=== PATIENT | female | born 1960 | race Caucasian/White ===

== ENCOUNTER 2017-03-15 08:15 | Inpatient (IN) | payer OTHER ==
[~2017-03-15] VITALS: Ht 162.6 cm; Wt 110.4 kg
[~2017-03-15 08:15] MED LIST: BACITRACIN 50,000 UNIT ONE; BUPIVACAINE/PF 0.5% ONE; EPINEPHRINE 1 MG/ML, 1ML ONE; THROMBIN 5,000 UNIT VIAL TP ONE; TRANEXAMIC ACID 100 MG/ML, 10ML ONE; VANCOMYCIN 1,000 MG ONE
[2017-03-15] MEDS ORDERED: FENTANYL PF 250 MCG/5ML ONE (08:34)
[2017-03-15] MEDS ORDERED: MIDAZOLAM 1 MG/ML, 2ML ONE (08:34)
[2017-03-15] MEDS ORDERED: LACTATED RINGERS 1,000 ML IV SCH (08:48)
[2017-03-15] MEDS ORDERED: METO-282 PO (08:57)
[2017-03-15] MEDS ORDERED: CALC-316 PO (08:57)
[2017-03-15] MEDS ORDERED: HYDR12.53 PO (08:57)
[2017-03-15] MEDS ORDERED: ATOR10TA9 PO (08:57)
[2017-03-15] MEDS ORDERED: ASPI-496 PO (08:57)
[2017-03-15] MEDS ORDERED: SITA100T PO (08:57)
[2017-03-15] MEDS ORDERED: ESOM40CA PO (08:57)
[2017-03-15] MEDS ORDERED: DICL50TA2 PO (08:57)
[2017-03-15] MEDS ORDERED: OXYC10TA72 PEG (08:57)
[2017-03-15] MEDS ORDERED: CHOL2000 PO (08:57)
[2017-03-15 09:09] VITALS: BP 141/82
[2017-03-15] MEDS ORDERED: PLEASE ENTER HEIGHT AND WEIGHT MC SCH (09:30)
[2017-03-15] MEDS ORDERED: PLEASE ENTER ALLERGIES MC SCH (09:30)
[2017-03-15] MEDS ORDERED: DEXAMETHASONE 4 MG/ML, 1ML ONE (09:35)
[2017-03-15] MEDS ORDERED: PROPOFOL 10 MG/ML, 20ML ONE ×2 (09:35→10:18)
[2017-03-15] MEDS ORDERED: ROCURONIUM 10 MG/ML,10ML ONE (09:35)
[2017-03-15] MEDS ORDERED: CEFAZOLIN 1,000 MG ONE ×2 (09:53→09:54)
[2017-03-15] MEDS ORDERED: PROPOFOL 100 ML ONE (10:18)
[2017-03-15] MEDS: BUPIVACAINE LIPOSOME/PF INFIL ONE ×2 (10:37→11:52)
[2017-03-15] MEDS ORDERED: ONDANSETRON 2MG/ML, 2ML ONE (11:34)
[2017-03-15] MEDS ORDERED: FENTANYL PF 100 MCG/2ML ONE (12:08)
[2017-03-15] MEDS ORDERED: ACETAMINOPHEN 650 MG/20.3 ML UDC ONE (12:08)
[2017-03-15] MEDS ORDERED: OXYcodone 5 MG/5 ML ORAL.SOL UDC ONE ×2 (12:09→12:55)
[2017-03-15] MEDS: FENTANYL PF 100 MCG/2ML IV PRN ×2 (12:10→12:18)
[2017-03-15] MEDS: OXYcodone 5 MG/5 ML ORAL.SOL UDC PO PRN ×2 (12:19→12:56)
[2017-03-15] MEDS ORDERED: HYDROmorphone 2 MG/ML, 1ML ONE ×2 (12:24→13:05)
[2017-03-15] MEDS: HYDROmorphone 1 MG/ML, 1ML IV PRN ×5 (12:26→13:08)
[2017-03-15] MEDS ORDERED: MEPERIDINE/PF 25MG/0.5ML IVPush PRN (12:30)
[2017-03-15] MEDS ORDERED: PROMETHAZINE 25 MG/ML, 1ML IV PRN (12:30)
[2017-03-15] MEDS ORDERED: ACETAMINOPHEN 325 MG TABLET PO PRN (12:30)
[2017-03-15] MEDS ORDERED: hydrALAzine 20 MG/ML, 1ML IV PRN (12:30)
[2017-03-15] MEDS ORDERED: DIPHENHYDRAMINE 50 MG CAPSULE PO PRN (12:30)
[2017-03-15] MEDS ORDERED: DIAZEPAM 5 MG TABLET PO PRN (12:30)
[2017-03-15] MEDS ORDERED: ZOLPIDEM 5MG TABLET PO PRN (12:30)
[2017-03-15] MEDS ORDERED: LABETALOL 5MG/ML, 20ML IV PRN (12:30)
[2017-03-15] MEDS ORDERED: OXYcodone/APAP 5/325MG TABLET PO PRN (12:30)
[2017-03-15] MEDS ORDERED: LABETALOL 5MG/ML, 20ML IVPush PRN (12:30)
[2017-03-15] MEDS ORDERED: ONDANSETRON 2MG/ML, 2ML IVPush PRN ×2 (12:30)
[2017-03-15] MEDS ORDERED: PHARMACY MAY ADJ FOR RENAL FX MC PRN (12:30)
[2017-03-15] MEDS ORDERED: morphine SULFATE 10 MG/ML, 1ML IVPush PRN (12:30)
[2017-03-15] MEDS ORDERED: LABETALOL 5MG/ML, 20ML ONE (12:35)
[2017-03-15] MEDS ORDERED: CYCLOBENZAPRINE 10 MG TABLET ONE (12:37)
[2017-03-15] MEDS: CYCLOBENZAPRINE 10 MG TABLET PO PRN ×2 (12:40→22:02)
[2017-03-15] MEDS: HYDROcodone/APAP 5/325 TABLET PO PRN ×3 (14:24→20:00)
[2017-03-15] MEDS: GABAPENTIN 300 MG CAPSULE PO SCH ×2 (17:56→20:00)
[2017-03-15 18:33] VITALS: BP 129/77
[2017-03-15] MEDS ORDERED: OXYB5TAB7 PO (20:06)
[2017-03-15] MEDS: OXYBUTYNIN CHLORIDE 5 MG TABLET PO SCH (22:02)
[2017-03-15] MEDS: ATORVASTATIN 10 MG TABLET PO SCH (22:02)
[2017-03-15 23:30] VITALS: BP 116/72
[2017-03-16 03:27] VITALS: BP 107/69
[2017-03-16] MEDS: HYDROcodone/APAP 5/325 TABLET PO PRN ×4 (05:18→23:36)
[2017-03-16] MEDS: CYCLOBENZAPRINE 10 MG TABLET PO PRN ×2 (07:23→17:20)
[2017-03-16] MEDS: SENNA/DOCUSATE TABLET PO PRN (07:23)
[2017-03-16 07:26] VITALS: BP 127/77
[2017-03-16] MEDS ORDERED: METOPROLOL TARTRATE 25 MG TABLET PO SCH (09:00)
[2017-03-16] MEDS: GABAPENTIN 300 MG CAPSULE PO SCH ×3 (09:38→19:26)
[2017-03-16] MEDS: SITAGLIPTIN 50MG TABLET PO SCH (09:38)
[2017-03-16 14:14] VITALS: BP 113/68
[2017-03-16] MEDS: OXYBUTYNIN CHLORIDE 5 MG TABLET PO SCH (19:26)
[2017-03-16] MEDS: CHOLECALCIFEROL 1,000 UNIT TABLET PO SCH (19:26)
[2017-03-16] MEDS: ATORVASTATIN 10 MG TABLET PO SCH (19:26)
[2017-03-16 19:38] VITALS: BP 108/69
[2017-03-16] MEDS ORDERED: ASPIRIN 81 MG TABLET EC PO SCH (21:00)
[2017-03-16] MEDS ORDERED: ATORVASTATIN 10 MG TABLET PO SCH (21:00)
[2017-03-16] MEDS ORDERED: OXYBUTYNIN CHLORIDE 5 MG TABLET PO SCH (21:00)
[2017-03-17 03:31] VITALS: BP 107/70
[2017-03-17] MEDS: METOPROLOL SUCCINATE 25 MG TAB.ER.24H PO SCH (06:27)
[2017-03-17 06:31] VITALS: BP 112/71
[2017-03-17] MEDS ORDERED: BUPIVACAINE/PF 0.5% ONE (07:19)
[2017-03-17] MEDS ORDERED: BACITRACIN 50,000 UNIT ONE (07:20)
[2017-03-17] MEDS ORDERED: EPINEPHRINE 1 MG/ML, 1ML ONE (07:20)
[2017-03-17] MEDS ORDERED: THROMBIN 5,000 UNIT VIAL TP ONE (07:20)
[2017-03-17 07:23] VITALS: BP 103/62
[2017-03-17] MEDS: PANTOPROZOLE 40MG TABLET PO SCH (07:30)
[2017-03-17] MEDS: SITAGLIPTIN 50MG TABLET PO SCH (07:47)
[2017-03-17] MEDS: HYDROCHLOROTHIAZIDE 12.5 MG CAPSULE PO SCH (07:47)
[2017-03-17] MEDS: CHOLECALCIFEROL 1,000 UNIT TABLET PO SCH ×2 (07:48→20:36)
[2017-03-17] MEDS: GABAPENTIN 300 MG CAPSULE PO SCH ×3 (07:48→20:35)
[2017-03-17] MEDS: OxyconTIN ER 10 MG TAB.ER PO SCH (07:48)
[2017-03-17] MEDS ORDERED: FENTANYL PF 250 MCG/5ML ONE (08:17)
[2017-03-17] MEDS ORDERED: BUPIVACAINE LIPOSOME/PF INFIL ONE ×2 (08:39→10:01)
[2017-03-17] MEDS ORDERED: TEMPLATE NON-FORMULARY MED. (Sitagliptin Phosphate** (Januvia**) 100 MG) PO SCH (09:00)
[2017-03-17 09:21] LABS: BASOPHILS # (AUTO) 0.03 x10^3/uL (0-0.1); BASOPHILS % (AUTO) 0 % (0-1); EOSINOPHILS # (AUTO) 0.05 x10^3/uL (0-0.4); EOSINOPHILS % (AUTO) 1 % (1-7); LYMPHOCYTES # (AUTO) 3.55 x10^3/uL (1-3.4); LYMPHOCYTES % (AUTO) 36 % (22-44); MD NO; MEAN CORPUSCULAR HGB CONC 33.7 g/dL (32.4-35.8); MEAN CORPUSCULAR VOLUME 86.3 fL (80-100); MONOCYTES # (AUTO) 0.77 x10^3/uL (0.2-0.8); MONOCYTES % (AUTO) 8 % (2-9); NEUTROPHILS % (AUTO) 56 % (42-75); PLATELET COUNT 283 x10^3/uL (130-400); RED BLOOD COUNT 4.09 x10^6/uL (3.82-5.3); RED CELL DISTRIBUTION WIDTH 13.5 % (9.6-15.2)
[2017-03-17] MEDS ORDERED: BUPIVACAINE/PF-EPI 0.5% 1:200K IM ONE (09:24)
[2017-03-17] MEDS ORDERED: DIAZEPAM 5 MG/ML, 2ML IVPush PRN (09:30)
[2017-03-17] MEDS ORDERED: OXYcodone 5 MG/5 ML ORAL.SOL UDC PO PRN (09:30)
[2017-03-17] MEDS ORDERED: ONDANSETRON 2MG/ML, 2ML IVPush PRN (09:30)
[2017-03-17] MEDS ORDERED: hydrALAzine 20 MG/ML, 1ML IV PRN (09:30)
[2017-03-17] MEDS ORDERED: LABETALOL 5MG/ML, 20ML IV PRN (09:30)
[2017-03-17] MEDS ORDERED: FENTANYL PF 100 MCG/2ML ONE ×2 (09:38→10:08)
[2017-03-17] MEDS ORDERED: VANCOMYCIN 1,000 MG ONE (09:45)
[2017-03-17] MEDS ORDERED: methylPREDNISolone SOD SUCC 40 MG/ML ONE (09:53)
[2017-03-17] MEDS ORDERED: ACETAMINOPHEN 650 MG/20.3 ML UDC ONE (10:08)
[2017-03-17] MEDS ORDERED: OXYcodone 5 MG/5 ML ORAL.SOL UDC ONE (10:08)
[2017-03-17] MEDS ORDERED: SUCCINYLCHOLINE 20 MG/ML, 10ML ONE (10:24)
[2017-03-17] MEDS ORDERED: TRANEXAMIC ACID 1,500 MG in SODIUM CHLORIDE 0.9% 100 ML IV ONE (10:30)
[2017-03-17] MEDS ORDERED: HYDROmorphone 2 MG/ML, 1ML ONE (10:46)
[2017-03-17] MEDS: HYDROmorphone 1 MG/ML, 1ML IV PRN ×5 (10:48→11:08)
[2017-03-17] MEDS: FENTANYL PF 100 MCG/2ML IV PRN ×2 (10:50→11:00)
[2017-03-17] MEDS ORDERED: ACETAMINOPHEN 325 MG/10.15 ML UDC PO ONE (12:30)
[2017-03-17 14:00] VITALS: BP 141/81
[2017-03-17] MEDS: HYDROcodone/APAP 5/325 TABLET PO PRN ×2 (17:28→18:03)
[2017-03-17 19:01] VITALS: BP 122/73
[2017-03-17] MEDS: SENNA/DOCUSATE TABLET PO PRN (20:35)
[2017-03-17] MEDS: ATORVASTATIN 10 MG TABLET PO SCH (20:35)
[2017-03-17] MEDS: OXYBUTYNIN CHLORIDE 5 MG TABLET PO SCH (20:35)
[2017-03-17] MEDS: METHOCARBAMOL 750 MG TABLET PO SCH (20:36)
[2017-03-18] MEDS: HYDROcodone/APAP 5/325 TABLET PO PRN ×4 (00:44→20:09)
[2017-03-18 01:20] VITALS: BP 126/77
[2017-03-18] MEDS: METHOCARBAMOL 750 MG TABLET PO SCH ×3 (05:40→19:07)
[2017-03-18] MEDS: MAGNESIUM HYDROXIDE 8%, 30ML UDC PO PRN (05:40)
[2017-03-18] MEDS: PANTOPROZOLE 40MG TABLET PO SCH (07:02)
[2017-03-18] MEDS: CHOLECALCIFEROL 1,000 UNIT TABLET PO SCH ×2 (08:45→20:10)
[2017-03-18] MEDS: GABAPENTIN 300 MG CAPSULE PO SCH ×3 (08:45→20:10)
[2017-03-18] MEDS: METOPROLOL SUCCINATE 25 MG TAB.ER.24H PO SCH ×2 (08:46→08:49)
[2017-03-18] MEDS: SITAGLIPTIN 50MG TABLET PO SCH (08:46)
[2017-03-18] MEDS: HYDROCHLOROTHIAZIDE 12.5 MG CAPSULE PO SCH (08:47)
[2017-03-18] MEDS: OxyconTIN ER 10 MG TAB.ER PO SCH (08:47)
[2017-03-18 08:48] VITALS: BP 108/68
[2017-03-18] MEDS: BISACODYL 10 MG SUPP PR PRN (15:17)
[2017-03-18 15:19] VITALS: BP 127/80
[2017-03-18 18:56] VITALS: BP 128/78
[2017-03-18] MEDS: CYCLOBENZAPRINE 10 MG TABLET PO PRN (19:05)
[2017-03-18] MEDS: OXYBUTYNIN CHLORIDE 5 MG TABLET PO SCH (20:09)
[2017-03-18] MEDS: ATORVASTATIN 10 MG TABLET PO SCH (20:09)
[2017-03-19] MEDS: HYDROcodone/APAP 5/325 TABLET PO PRN ×6 (00:14→19:33)
[2017-03-19 01:39] VITALS: BP 128/78
[2017-03-19] MEDS: METHOCARBAMOL 750 MG TABLET PO SCH ×3 (04:15→21:33)
[2017-03-19 08:17] VITALS: BP 132/82
[2017-03-19] MEDS: OxyconTIN ER 10 MG TAB.ER PO SCH (09:00)
[2017-03-19] MEDS: PANTOPROZOLE 40MG TABLET PO SCH (09:50)
[2017-03-19] MEDS: GABAPENTIN 300 MG CAPSULE PO SCH ×3 (09:50→21:32)
[2017-03-19] MEDS: SITAGLIPTIN 50MG TABLET PO SCH (09:50)
[2017-03-19] MEDS: HYDROCHLOROTHIAZIDE 12.5 MG CAPSULE PO SCH (09:50)
[2017-03-19] MEDS: METOPROLOL SUCCINATE 25 MG TAB.ER.24H PO SCH (10:01)
[2017-03-19] MEDS: MAGNESIUM HYDROXIDE 8%, 30ML UDC PO PRN (10:18)
[2017-03-19] MEDS: CHOLECALCIFEROL 1,000 UNIT TABLET PO SCH ×2 (10:21→21:33)
[2017-03-19 15:09] VITALS: BP 112/71
[2017-03-19] MEDS ORDERED: HYDROmorphone 1 MG/ML, 1ML IV PRN (17:30)
[2017-03-19] MEDS ORDERED: MAGNESIUM HYDROXIDE 8%, 30ML UDC PO PRN (17:30)
[2017-03-19] MEDS: HYDROmorphone 2 MG/ML, 1ML IV PRN ×2 (17:52→21:30)
[2017-03-19 20:00] VITALS: BP 100/64
[2017-03-19] MEDS: OXYBUTYNIN CHLORIDE 5 MG TABLET PO SCH (21:33)
[2017-03-19] MEDS: ATORVASTATIN 10 MG TABLET PO SCH (21:33)
[2017-03-19] MEDS: SENNA/DOCUSATE TABLET PO PRN (21:35)
[2017-03-20 03:23] VITALS: BP 117/74
[2017-03-20] MEDS: CYCLOBENZAPRINE 10 MG TABLET PO PRN (03:27)
[2017-03-20] MEDS: METHOCARBAMOL 750 MG TABLET PO SCH ×2 (04:30→08:13)
[2017-03-20 06:42] VITALS: BP 116/73
[2017-03-20] MEDS: SITAGLIPTIN 50MG TABLET PO SCH (08:13)
[2017-03-20] MEDS: HYDROCHLOROTHIAZIDE 12.5 MG CAPSULE PO SCH (08:13)
[2017-03-20] MEDS: METOPROLOL SUCCINATE 25 MG TAB.ER.24H PO SCH (08:13)
[2017-03-20] MEDS: GABAPENTIN 300 MG CAPSULE PO SCH (08:13)
[2017-03-20] MEDS: CHOLECALCIFEROL 1,000 UNIT TABLET PO SCH (08:13)
[2017-03-20] MEDS: HYDROmorphone 2MG TABLET PO PRN ×3 (08:56→15:46)
[2017-03-20] MEDS: SENNA/DOCUSATE TABLET PO PRN (08:57)
[2017-03-20] MEDS: MAGNESIUM HYDROXIDE 8%, 30ML UDC PO PRN (08:57)
[2017-03-20] MEDS: OxyconTIN ER 10 MG TAB.ER PO SCH (09:00)
[2017-03-20] MEDS: BISACODYL 10 MG SUPP PR PRN (10:04)
[2017-03-20 13:49] VITALS: BP 128/77
== END 2017-03-20 16:00 | disposition home or self-care (01) | DRG 460 ==
LOC: ORIP 08:15 → 4NOR 14:06
PROVIDERS: ADMIT Orthopaedic Surgery Orthopaedic Surgery of the Spine; ATTEND Orthopaedic Surgery Orthopaedic Surgery of the Spine
PROC: 01NB0ZZ Release Lumbar Nerve, Open Approach (ICD-10-PCS; 2017-03-15)
PROC: 4A11X4G Monitoring of Peripheral Nervous Electrical Activity, Intraoperative, External Approach (ICD-10-PCS; 2017-03-15)
PROC: 5A09357 Assistance with Respiratory Ventilation, Less than 24 Consecutive Hours, Continuous Positive Airway Pressure (ICD-10-PCS; 2017-03-15)
PROC: 5A09357 Assistance with Respiratory Ventilation, Less than 24 Consecutive Hours, Continuous Positive Airway Pressure (ICD-10-PCS; 2017-03-15)
PROC: 5A09357 Assistance with Respiratory Ventilation, Less than 24 Consecutive Hours, Continuous Positive Airway Pressure (ICD-10-PCS; 2017-03-15)
PROC: 0SG00AJ Fusion of Lumbar Vertebral Joint with Interbody Fusion Device, Posterior Approach, Anterior Column, Open Approach (ICD-10-PCS; principal; 2017-03-15 10:00)
DX: M48.061 Spinal stenosis, lumbar region without neurogenic claudication (principal); Z68.41 Body mass index [BMI] 40.0-44.9, adult; E66.9 Obesity, unspecified; M51.16 Intervertebral disc disorders with radiculopathy, lumbar region; M47.26 Other spondylosis with radiculopathy, lumbar region; M43.16 Spondylolisthesis, lumbar region
CPT/HCPCS: 36415; 72100; 82962; 85025; 86850; 86900; 86923; C1713; C1767; C1776; C9290; J0171; J0690; J1100; J1170; J2250; J2405; J2704; J3010; J3370; J3490; C1762; J0330; J2270; J2920; J7120